=== PATIENT | female | born 1975 | race Caucasian/White ===

== ENCOUNTER 2018-08-20 18:13 | Emergency (ER) | payer MEDICAID ==
[2018-08-20 18:25] VITALS: BP 130/60
--- NOTE | 2018-08-20 19:19 | EDPHY ---
H & P Smoking Status: Never smoked Time Seen by Provider: 08/20/18 19:17 HPI/ROS: CHIEF COMPLAINT: Left 4th toe pain HISTORY OF PRESENT ILLNESS: 43-year-old female here with left 4th toe pain after she jammed her toe walking home. She has tried no medication to alleviate her pain. She denies any numbness but does report loss of range of motion. She takes no blood thinners. She denies any drug or alcohol use currently. REVIEW OF SYSTEMS: Constitutional: No fever, no chills. Eyes: No discharge. ENT: No sore throat. Cardiovascular: No chest pain, no palpitations. Respiratory: No cough, no shortness of breath. Gastrointestinal: No abdominal pain, no vomiting. Genitourinary: No hematuria. Musculoskeletal: No back pain. Skin: No rashes. Neurological: No headache. (Jose Nayak) Physical Exam: General Appearance: Alert and no distress. Eyes: Pupils equal and round no injection. Respiratory: Chest is nontender, lungs are clear to auscultation. Cardiac: regular rate and rhythm. Gastrointestinal: Abdomen is soft and nontender, no masses, bowel sounds normal. Musculoskeletal: Neck is supple and nontender. Tenderness deformity to the left 4th toe. Cap refill less than 2 sec and sensation is intact distal to MTP. After reduction of the MTP joint patient is neurovascular intact and pain well controlled. Extremities have full range of motion and are nontender. Skin: No rashes or lesions. (Jose Nayak) Constitutional: Initial Vital Signs Temperature (C) 36.4 C 08/20/18 18:21 Heart Rate 61 08/20/18 18:21 Respiratory Rate 18 08/20/18 18:21 Blood Pressure 130/60 H 08/20/18 18:21 O2 Sat (%) 97 08/20/18 18:21 O2 Delivery Mode Room Air Allergies/Adverse Reactions: No Known Allergies Allergy (Verified 08/20/18 18:20) Home Medications: Medication Instructions Recorded NK [No Known Home Meds] 08/20/18 Medical Decision Making ED Course/Re-evaluation: 43-year-old female here with dislocation of the left 4th toe. Was able to use in-line traction and reduced the joint without complication. Post reduction films consistent with normal alignment and no fracture. (Jose Nayak) Other Provider: This pt was seen independently by Allen Nayak. I reviewed the chart on 08/21 and asked Allen to contact the pt with Podiatry f/u information. I am the secondary supervising MD. (Mai Smith) - Data Points Medications Given: Discontinued Medications Hydrocodone Bitart/Acetaminophen ([place] 5/325) 1 tab PO EDNOW ONE Stop: 08/20/18 19:43 Last Admin: 08/20/18 20:00 Dose: 1 tab Departure - Departure Disposition: Home, Routine, Self-Care Clinical Impression: Toe dislocation Condition: Good Instructions: Finger Dislocation (ED) Additional Instructions: He use tape as done emergency room to attach the dislocated toe to the adjacent toe for the next week to stabilize it.. Follow up the primary care doctor in 7- 10 days if continued pain. Referrals: NONE *PRIMARY CARE P,. [Primary Care Provider] - As per Instructions
[2018-08-20] MEDS ORDERED: HYDROCODONE/APAP 5/325 TAB PO ONE (19:42)
== END 2018-08-20 20:10 | disposition home or self-care (01) ==
PROC: 0SSNXZZ Reposition Left Metatarsal-Phalangeal Joint, External Approach (ICD-10-PCS; principal; 2018-08-20)
DX: S93.125A Dislocation of metatarsophalangeal joint of left lesser toe(s), initial encounter (principal); W22.09XA Striking against other stationary object, initial encounter; Y93.01 Activity, walking, marching and hiking; Y99.8 Other external cause status